=== PATIENT | female | born 1990 | race Caucasian/White ===

== ENCOUNTER 2016-09-04 09:46 | Emergency (ER) | payer BC, OTHER ==
[~2016-09-04 09:46] MED LIST: ATARAX PO; COLACE PO; FAMOTIDINE PO; IRON1 TAB PO; MACROBID100 MG PO; NO MEDICATIONS; PHENERGAN PO; PHENERGAN25 MG PO; PREDNISONE10 MG PO; PRENATAL1 TA1 PO; ROBITUSSIN; TRINESSA; ZOFRAN ODT4 MG PO
[2016-09-04] MEDS ORDERED: NO MEDICATIONS (09:54)
[2016-09-04 10:45] LABS: URINE SOURCE CLEAN CATCH
[2016-09-04 10:47] LABS: URINE APPEARANCE CLEAR; URINE BILIRUBIN NEG (NEG); URINE BLOOD TRACE-INTACT (NEG); URINE COLOR YELLOW; URINE GLUCOSE NEG (NORM); URINE KETONE NEG (NEG); URINE LEUKOCYTE ESTERASE 1+ (NEG); URINE NITRATE NEG (NEG); URINE PH 5.5 (5-8); URINE PROTEIN NEG (NEG); URINE UROBILINOGEN 0.2 MG/DL (NORM)
[2016-09-04 10:51] LABS: MICRO INDICATED? YES
[2016-09-04 11:08] LABS: CULTURE INDICATED? YES; URINE BACTERIA 1+ (NEG); URINE RBC 0-2 /[HPF] (0-2)
[2016-09-04 11:10] LABS: URINE CRYSTALS URIC ACID /[HPF]; URINE SQUAMOUS EPITHELIAL CELL OCCAS /[HPF]
== END 2016-09-04 11:53 | disposition home or self-care (01) ==
LOC: SED 09:46
PROVIDERS: Emergency Medicine
DX: K29.20 Alcoholic gastritis without bleeding (principal); F10.129 Alcohol abuse with intoxication, unspecified; K21.9 Gastro-esophageal reflux disease without esophagitis; Z90.49 Acquired absence of other specified parts of digestive tract; Y90.4 Blood alcohol level of 80-99 mg/100 ml
CPT/HCPCS: 81003; 84703; 87086; 96361; 96374; 96375; 99284; G0480; J2405